=== PATIENT | female | born 1980 | race Caucasian/White ===

== ENCOUNTER 2022-01-01 10:32 | Emergency (ER) | payer MEDICARE, OTHER ==
[~2022-01-01] VITALS: Ht 165.1 cm; Wt 73.5 kg
--- NOTE | 2022-01-01 10:40 | NUR ---
BIB [facility] 89 FROM HOME, C/O ABDOMINAL PAIN WHILE SITTING IN A COUCH X 1 HR
[2022-01-01] MEDS ORDERED: ONDANSETRON HCL/PF 4 MG/2 ML VIAL IVP ONE (11:00)
[2022-01-01] MEDS ORDERED: IV NS 0.9% 1,000 ML BAG IV ONE (11:00)
--- NOTE | 2022-01-01 11:06 | NUR ---
IV JESUS MANUEL Viramontes AC 20G. LABS DRAWN AND SENT.
[2022-01-01 11:20] LABS: BILIRUBIN,URINE NEGATIVE (NEGATIVE); COLOR,URINE YELLOW (YELLOW); LEUKOCYTE ESTERASE ,URINE MODERATE (NEGATIVE); NITRITE, URINE NEGATIVE (NEGATIVE); PH,URINE 5.5 (5.0-8.0); PROTEIN,URINE 30 mg/dl (NEGATIVE); UGLUCOSE NEGATIVE (NEGATIVE); UROBILINOGEN,URINE 0.2 EU/dL (0.2)
[2022-01-01 11:21] LABS: BASOPHILS # (AUTO) 0.1 K/uL (0.0-0.2); BASOPHILS % (AUTO) 0.5 % (0.0-2.0); EOSINOPHILS % (AUTO) 0.4 % (0.0-6.0); HEMATOCRIT 43 % (33-45); HEMOGLOBIN 14.1 g/dL (11.5-14.8); LYMPHOCYTES # (AUTO) 1.8 K/uL (0.8-4.8); LYMPHOCYTES % (AUTO) 15.7 % (20.0-44.0); MEAN CORPUSCULAR HGB CONC 33 g/dl (31.0-36.0); MEAN CORPUSCULAR VOLUME 87 fL (82-100); MONOCYTES # (AUTO) 1.2 K/uL (0.1-1.30); MONOCYTES % (AUTO) 10.4 % (2.0-12.0); NEUTROPHILS # (AUTO) 8.2 K/uL (1.8-8.9); PLATELET COUNT (AUTO) 425 K/uL (150-450); RED BLOOD CELL COUNT(AUTO) 5.01 MIL/uL (4.0-5.2); WHITE BLOOD COUNT (AUTO) 11.2 K/uL (4.3-11.0)
[2022-01-01 11:43] LABS: CALCIUM, SERUM 8.8 mg/dL (8.5-10.1); CREATININE 0.9 mg/dL (0.6-1.3); POTASSIUM 3.5 mmol/L (3.5-5.1)
[2022-01-01 11:50] LABS: ALBUMIN 3.6 g/dL (3.4-5.0); BILIRUBIN,DIRECT 0.1 mg/dL (0.0-0.2); BILIRUBIN,TOTAL 0.4 mg/dL (0.2-1.0); TOTAL PROTEIN, SERUM 7.4 g/dL (6.4-8.2)
--- NOTE | 2022-01-01 12:16 | NUR ---
PT TAKEN TO CT VIA CONNIE
[2022-01-01 12:18] LABS: WBC,URINE 21-50 /HPF (0-3)
[2022-01-01 12:19] LABS: BACTERIA,URINE 3+ /HPF (None Seen)
[2022-01-01] MEDS ORDERED: CEFTRIAXONE 1 G in IV D5W 50 ML IV ONE (13:00)
--- NOTE | 2022-01-01 13:17 | NUR ---
CALLED DR PELAYO UROLOGIST, STATES WILL CALL BACK
--- NOTE | 2022-01-01 14:12 | NUR ---
CALLED DR PELAYO LEFT VOICEMAIL
[2022-01-01] MEDS ORDERED: KETOROLAC TROMETHAMINE 15 MG/ML VIAL ONE (14:28)
[2022-01-01] MEDS ORDERED: ONDANSETRON HCL/PF 4 MG/2 ML VIAL ONE (14:28)
[2022-01-01] MEDS ORDERED: KETOROLAC TROMETHAMINE INJ 30 MG/ML VIAL IV ONE (14:30)
[2022-01-01] MEDS ORDERED: CIPR-262 PO (14:53)
[2022-01-01] MEDS ORDERED: HYDR-4209 PO (14:53)
[2022-01-01] MEDS ORDERED: TAMS-12 PO (14:53)
[2022-01-01] MEDS ORDERED: ONDA4TAB5 PO (14:53)
[2022-01-01] MEDS ORDERED: IBUP-1955 PO (14:53)
--- NOTE | 2022-01-01 14:55 | NUR ---
jerad [id number] [facility], [place] [id number]
[2022-01-01 15:15] VITALS: BP 133/77
--- NOTE | 2022-01-01 15:15 | NUR ---
Patient discharged to home in stable condition. Written and verbal after care instructions given. Patient verbalizes understanding of instruction.IV removed. Catheter intact and site benign. Pressure and 4x4 applied to site. No bleeding noted.
== END 2022-01-01 15:16 | disposition home or self-care (01) ==
LOC: ER 10:40
DX: N23 Unspecified renal colic (principal); N13.2 Hydronephrosis with renal and ureteral calculous obstruction; N39.0 Urinary tract infection, site not specified; Z91.018 Allergy to other foods; Z60.2 Problems related to living alone
CPT/HCPCS: 99284; 74176; 96365; 96361; 96375; 85025; 80048; 87086; 83690; 80076; 84703; 81001; 36415; J0696; J7060; J7030; J1885; J2405